=== PATIENT | male | born 1955 | race Two or more races ===

== ENCOUNTER 2024-06-09 09:37 | Emergency (ER) | payer MEDICARE, MEDICAID ==
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
== END 2024-06-09 10:01 | disposition left against medical advice (07) ==
LOC: ER 09:37
DX: S09.8XXD Other specified injuries of head, subsequent encounter (principal); M54.9 Dorsalgia, unspecified; I10 Essential (primary) hypertension; Y04.8XXD Assault by other bodily force, subsequent encounter